=== PATIENT | female | born 1985 | race Caucasian/White ===

== ENCOUNTER 2017-10-13 16:16 | Emergency (ER) | payer MEDICAID, SELFPAY ==
[2017-10-13 16:21] VITALS: BP 164/107; PULSE 97; RESP 20; TEMP 36.8; O2SAT 97; BMI 29.2
[2017-10-13 16:27] VITALS: BP 164/107; PULSE 97; RESP 20; TEMP 36.9; O2SAT 97; BMI 29.2
--- NOTE | 2017-10-13 16:37 | CT_ITS ---
CT head/brain wo con HISTORY: Severe headache and dizziness ITS.REASON: HIGH BP, RIVERA, DIZZINESS ORDERING PHYSICIAN: Kari Ramírez MD PATIENT AGE: 32 years COMPARISON: None TECHNIQUE: Axial images obtained without contrast. Brain and bone windows reviewed. FINDINGS: No midline shift, mass effect, intracranial hemorrhage, hydrocephalus, or extra-axial fluid collection is evident. The calvarium has an unremarkable appearance. No mastoid effusion. No sinus air-fluid levels.. IMPRESSION: Negative CT head without contrast. No acute finding.
--- NOTE | 2017-10-13 16:37 | XR_ITS ---
XR chest 2V HISTORY: Hypertension ITS.REASON: HIGH BP, RIVERA, DIZZINESS ORDERING PHYSICIAN: Kari Ramírez MD PATIENT AGE: 32 years COMPARISON: 06/15/2017 FINDINGS: The cardiomediastinal silhouette and pulmonary vascularity are within normal limits. The lungs are clear without infiltrates, suspicious nodules, or pleural effusions. No acute bony abnormalities. IMPRESSION: Negative chest, no acute finding
[2017-10-13 16:47] VITALS: BP 151/105; PULSE 74; RESP 20; O2SAT 98
[2017-10-13 17:01] LABS: Microscopic, Urine URINE MICROSCOPIC (MICROSCOPIC)
[2017-10-13 17:04] LABS: Basophils # 0.1 K/mm3 (0-0.2); Basophils % 0.6 % (0.1-2.0); Eosinophils # 0.2 K/mm3 (0.0-0.4); Eosinophils % 1.5 % (0.1-12.0); Hematocrit 42.8 % (37.0-47.0); Hemoglobin 14.4 g/dL (12.2-16.2); Lymphocytes # 2.5 K/mm3 (0.7-4.5); Lymphocytes % 21.8 K/mm3 (10-50); Mean Corpuscular HGB Conc 33.7 g/dL (31.8-35.4); Mean Corpuscular Hemoglobin 32.7 pg (27.0-31.2); Mean Corpuscular Volume 97.1 fl (81-99); Monocytes # 0.5 K/mm3 (0.1-1.0); Monocytes % 4.2 % (1.7-9.3); Neutrophils # 8.4 K/mm3 (1.8-7.8); Neutrophils % 71.9 % (37.0-80.0); Platelet Count 394 K/mm3 (142-424); Red Blood Count 4.41 M/mm3 (4.20-5.40); Red Cell Distribution Width 12.4 % (11.5-17.5); White Blood Count 11.7 K/mm3 (4.8-10.8)
--- NOTE | 2017-10-13 17:05 | PC.NURSE ---
PT TO RAD AT THIS TIME
[2017-10-13 17:13] LABS: Appearance,Urine CLEAR (Clear); Bilirubin,Urine Negative (Negative); Blood, Urine Negative (Negative); Color,Urine YELLOW (Yellow); Glucose,Urine (UA) Negative (Negative); Ketones,Urine Negative (Negative); Leukocyte Esterase,Urine Negative (Negative); Nitrate,Urine Negative (Negative); Protein,Urine Negative (Negative); Specific Gravity, Urine 1.015 (1.005-1.030); Urobilinogen,Urine 0.2 EU/dl (0.2)
[2017-10-13 17:16] LABS: Urine Pregnancy, HCG Qual. Negative (Negative)
[2017-10-13 17:24] LABS: Amphetamine/Metha Screen,Urine Negative ng/mL (<1000); Barbiturates Screen,Urine Negative ng/mL (<200); Benzodiazepines Screen,Urine Negative ng/mL (200); Cannabinoid Screen,Urine Negative ng/mL (<50); Cocaine Screen,Urine Negative ng/g (<300); Methadone Screen,Urine Negative ng/mL (<300); Opiate Screen,Urine Negative ng/mL (<300); Phencyclidine Screen,Urine Negative ng/mL (<25)
[2017-10-13 17:25] LABS: Bacteria,Urine Trace /lpf; Squamous Epithelial Cell,Urine 20-50 #/hpf (0-5)
[2017-10-13 17:28] LABS: Alanine Aminotransferase 56 U/L (12-78); Albumin Level 4.2 gm/dL (3.4-5.0); Albumin/Globulin Ratio 1.2 (1.1-1.8); Alkaline Phosphatase 130 U/L (46-116); Aspartate Amino Transferase 34 U/L (15-37); Bilirubin,Total 0.6 mg/dL (0.2-1.0); Blood Urea Nitrogen 11 mg/dL (7-18); Calcium 8.5 mg/dL (8.5-10.1); Carbon Dioxide 25 mmol/L (21.0-32.0); Chloride 103 mmol/L (98-107); Creatine Kinase 64 U/L (26-192); Creatinine Clearance Estimated 179 mL/min (0-300); Creatinine,Serum 0.54 mg/dL (0.55-1.02); Estimated Glomerular Filt Rate 129 ml/min (>60); GFR (African American) 156 ML/MIN (>60); Globulin 3.6 gm/dl (1.3-3.2); Glucose 96 mg/dL (74-106); Sodium 139 mmol/L (136-145); Total Protein,Serum 7.8 gm/dL (6.4-8.2); Troponin I < 0.02 ng/ml (0.00-0.06)
[2017-10-13 17:29] LABS: CKMB Relative Index 0.8 U/L (0-4.0); Creatine Kinase MB < 0.5 mg/ml (0.0-3.6)
--- NOTE | 2017-10-13 17:44 | HMH.EDHA ---
ED Disposition Clinical Impression: Hypertensive urgency, Headache Disposition: Home, Self-Care Condition on Discharge: Good Instructions: DI for Headache Additional Instructions: See MD of choice in one to three days for recheck blood pressure and better blood pressure control. Prescriptions: Lisinopril/Hydrochlorothiazide [Lisinopril-Hctz 10-12.5 mg Tab] 1 tab PO DAILY #14 tab Referrals: Provider,Referral, MD [Primary Care Provider] - - Critical Care Critical Care Time: Yes Attestation: On 10/13/17, the high probability of a clinically significant, sudden or life threatening deterioration of the following system(s) required my full and direct attention, intervention and personal management. The time I documented below is in addition to time spent performing reported procedures but includes the following listed in this critical care notation. Vital system(s) involved:: Central Nervous System My critical care processes included: Assessment & monitoring of V/S, Initial and Re-exams, Data Review/Interpretation, Medication Orders and management, Documentation Medical Decision Making - Medical Records Medical records reviewed: Yes: I reviewed the patient's medical records. Vital Signs: 10/13/17 16:21 10/13/17 16:27 10/13/17 16:47 Temperature 98.2 F 98.4 F Temperature Source Oral Oral Pulse Rate [Right Brachial] 97 H 97 H 74 Respiratory Rate 20 20 20 Blood Pressure [Right Arm] 164/107 164/107 151/105 Blood Pressure Mean [Right Arm] 126 126 120 Blood Pressure Source [Right Arm] Automatic Cuff Automatic Cuff Automatic Cuff Blood Pressure Position [Right Arm] Sitting Sitting Supine 02 Sat by Pulse Oximetry 97 97 98 Oxygen Delivery Method Room Air Room Air Room Air 10/13/17 18:17 Temperature Temperature Source Pulse Rate [Right Brachial] 72 Respiratory Rate 20 Blood Pressure [Right Arm] 143/100 Blood Pressure Mean [Right Arm] 114 Blood Pressure Source [Right Arm] Automatic Cuff Blood Pressure Position [Right Arm] Sitting 02 Sat by Pulse Oximetry 99 Oxygen Delivery Method Room Air - Lab Data Lab results reviewed: Yes: I reviewed the patient's lab results. Lab Results 10/13/17 16:50: WBC 11.7 H, RBC 4.41, Hgb 14.4, Hct 42.8, MCV 97.1, MCH 32.7 H, MCHC 33.7, RDW 12.4, Plt Count 394, MPV 7.0 L, Neut % (Auto) 71.9, Lymph % (Auto) 21.8, [place] % (Auto) 4.2, Eos % (Auto) 1.5, Baso % (Auto) 0.6, Neut # (Auto) 8.4 H, Lymph # (Auto) 2.5, [place] # (Auto) 0.5, Eos # (Auto) 0.2, Baso # (Auto) 0.1 10/13/17 16:50: Sodium 139, Potassium 4.0, Chloride 103, Carbon Dioxide 25, Anion Gap 15.0, BUN 11, Creatinine 0.54 L, Estimated Creat Clear 179, Estimated GFR 129, Est GFR ( Amer) 156, Glucose 96, Calcium 8.5, Total Bilirubin 0.6, AST 34, ALT 56, Alkaline Phosphatase 130 H, Total Creatine Kinase 64, CK-MB (CK-2) < 0.5, CK-MB (CK-2) Rel Index 0.8, Troponin I < 0.02, Total Protein 7.8, Albumin 4.2, Globulin 3.6 H, Albumin/Globulin Ratio 1.2 10/13/17 16:50: Urine HCG, Qual Negative 10/13/17 16:50: Urine Opiates Screen Negative, Ur Barbituates Screen Negative, Ur Phencyclidine Scrn Negative, Ur Amphetamines Screen Negative, U Methamphetamines Scrn Negative, U Benzodiazepines Scrn Negative, Urine Cocaine Screen Negative, U Marijuana (THC) Screen Negative 10/13/17 16:56: Urine Color Yellow, Urine Appearance Clear, Urine pH 8.0, Ur Specific [place] 1.015, Urine Protein Negative, Urine Glucose (UA) Negative, Urine Ketones Negative, Urine Blood Negative, Urine Nitrate Negative, Urine Bilirubin Negative, Urine Urobilinogen 0.2, Ur Leukocyte Esterase Negative, Urine RBC None, Urine WBC None, Ur Squamous Epith Cells 20-50, Urine Bacteria Trace Result diagrams: 10/13/17 16:50 10/13/17 16:50 Orders (Tests/Meds): ED MEDICATIONS Discontinued Medications Generic Name Dose Route Start Last Admin Trade Name Freq PRN Reason Stop Dose Admin Clonidine HCl 0.1 mg 10/13/17 17:59 10/13/17 18:02 Clonidine 0.1mg Tablet PO
--- NOTE | 2017-10-13 17:48 | ED_ITS ---
ED Disposition Clinical Impression: Hypertensive urgency, Headache Disposition: Home, Self-Care Condition on Discharge: Good Instructions: DI for Headache Additional Instructions: See MD of choice in one to three days for recheck blood pressure and better blood pressure control. Prescriptions: Lisinopril/Hydrochlorothiazide [Lisinopril-Hctz 10-12.5 mg Tab] 1 tab PO DAILY # 14 tab Referrals: Provider,Referral, MD [Primary Care Provider] - - Critical Care Critical Care Time: Yes Attestation: On 10/13/17, the high probability of a clinically significant, sudden or life threatening deterioration of the following system(s) required my full and direct attention, intervention and personal management. The time I documented below is in addition to time spent performing reported procedures but includes the following listed in this critical care notation. Vital system(s) involved:: Central Nervous System My critical care processes included: Assessment & monitoring of V/S, Initial and Re-exams, Data Review/Interpretation, Medication Orders and management, Documentation Medical Decision Making - Medical Records Medical records reviewed: Yes: I reviewed the patient's medical records. Vital Signs: 10/13/17 16:21 10/13/17 16:27 10/13/17 16:47 Temperature 98.2 F 98.4 F Temperature Source Oral Oral Pulse Rate [Right Brachial] 97 H 97 H 74 Respiratory Rate 20 20 20 Blood Pressure [Right Arm] 164/107 164/107 151/105 Blood Pressure Mean [Right Arm] 126 126 120 Blood Pressure Source [Right Arm] Automatic Cuff Automatic Cuff Automatic Cuff Blood Pressure Position [Right Arm] Sitting Sitting Supine 02 Sat by Pulse Oximetry 97 97 98 Oxygen Delivery Method Room Air Room Air Room Air 10/13/17 18:17 Temperature Temperature Source Pulse Rate [Right Brachial] 72 Respiratory Rate 20 Blood Pressure [Right Arm] 143/100 Blood Pressure Mean [Right Arm] 114 Blood Pressure Source [Right Arm] Automatic Cuff Blood Pressure Position [Right Arm] Sitting 02 Sat by Pulse Oximetry 99 Oxygen Delivery Method Room Air - Lab Data Lab results reviewed: Yes: I reviewed the patient's lab results. Lab Results 10/13/17 16:50: WBC 11.7 H, RBC 4.41, Hgb 14.4, Hct 42.8, MCV 97.1, MCH 32.7 H, MCHC 33.7, RDW 12.4, Plt Count 394, MPV 7.0 L, Neut % (Auto) 71.9, Lymph % (Auto ) 21.8, [place] % (Auto) 4.2, Eos % (Auto) 1.5, Baso % (Auto) 0.6, Neut # (Auto) 8.4 H, Lymph # (Auto) 2.5, [place] # (Auto) 0.5, Eos # (Auto) 0.2, Baso # (Auto) 0.1 10/13/17 16:50: Sodium 139, Potassium 4.0, Chloride 103, Carbon Dioxide 25, Anion Gap 15.0, BUN 11, Creatinine 0.54 L, Estimated Creat Clear 179, Estimated GFR 129, Est GFR ( Amer) 156, Glucose 96, Calcium 8.5, Total Bilirubin 0.6, AST 34, ALT 56, Alkaline Phosphatase 130 H, Total Creatine Kinase 64, CK- MB (CK-2) < 0.5, CK-MB (CK-2) Rel Index 0.8, Troponin I < 0.02, Total Protein 7.8, Albumin 4.2, Globulin 3.6 H, Albumin/Globulin Ratio 1.2 10/13/17 16:50: Urine HCG, Qual Negative 10/13/17 16:50: Urine Opiates Screen Negative, Ur Barbituates Screen Negative, Ur Phencyclidine Scrn Negative, Ur Amphetamines Screen Negative, U Methamphetamines Scrn Negative, U Benzodiazepines Scrn Negative, Urine Cocaine Screen Negative, U Marijuana (THC) Screen Negative 10/13/17 16:56: Urine Color Yellow, Urine Appearance Clear, Urine pH 8.0, Ur Specific [place] 1.015, Urine Protein Negative, Urine Glucose (UA) Negative, Urine [place]
[2017-10-13 18:17] VITALS: BP 143/100; PULSE 72; RESP 20; O2SAT 99
[2017-10-13 19:07] VITALS: BP 130/92; PULSE 88; RESP 22; TEMP 37.1; O2SAT 98
== END 2017-10-13 19:10 | disposition home or self-care (01) ==
PROVIDERS: Emergency Provider Emergency Medicine; Family Provider Family Medicine
DX: I16.0 Hypertensive urgency (principal); R51 Headache
CPT/HCPCS: 70450; 71046; 80053; 80305; 81001; 81025; 82550; 82553; 84484; 85025; 93005; 93041; 99284

== ENCOUNTER 2019-04-23 11:25 | Outpatient (CLI) | payer MEDICAID, SELFPAY ==
--- NOTE | 2019-04-23 11:41 | PC.NURSE ---
HERE FOR PHYSICAL FOR WORK
== END 2019-04-23 11:42 | disposition home or self-care (01) ==
LOC: UTC.OUT 11:27
PROVIDERS: Visit Provider Nurse Practitioner Family
DX: Z02.1 Encounter for pre-employment examination (principal)

== ENCOUNTER 2023-02-05 18:36 | Emergency (ER) | payer MEDICAID, SELFPAY ==
[2023-02-05 18:36] VITALS: BP 146/80; PULSE 91; RESP 19; TEMP 37; O2SAT 97; BMI 27.4
[2023-02-05 18:48] VITALS: PULSE 87; O2SAT 98
[2023-02-05 19:00] VITALS: BP 129/73; PULSE 78; O2SAT 98
--- NOTE | 2023-02-05 19:02 | CT_ITS ---
PROCEDURE INFORMATION: Exam: CT Head With Contrast Exam date and time: 02/05/2023 7:20 PM Age: 37 years old Clinical indication: Pain; Other: Concern for abscess; Additional info: Concern for abscess/mastoiditis TECHNIQUE: Imaging protocol: Computed tomography of the head with intravenous contrast. Radiation optimization: All CT scans at this facility use at least one of these dose optimization techniques: automated exposure control; mA and/or kV adjustment per patient size (includes targeted exams where dose is matched to clinical indication); or iterative reconstruction. Contrast material: ISOVUE; Contrast volume: 100 ml; Contrast route: IV; REPORTING DATA: Count of CT and Cardiac NM exams in prior 12 months: This patient has received 0 known CTs and 0 known cardiac nuclear medicine studies in the 12 months prior to the current study. COMPARISON: HEADWO CT head/brain wo con 10/13/2017 5:06 PM FINDINGS: Brain: Unremarkable white matter. No mass effect. No abnormal enhancing lesions. Cerebral ventricles: Unremarkable. No ventriculomegaly. Bones/joints: Unremarkable. No acute fracture. Paranasal sinuses: Visualized sinuses are unremarkable. No fluid levels. Mastoid air cells: Visualized mastoid air cells are well aerated. Soft tissues: Unremarkable. IMPRESSION: No acute intracranial abnormality.
--- NOTE | 2023-02-05 19:03 | HMH.EDGENADL ---
Discharge Plan Disposition Patient Disposition: Home, Self-Care Prescriptions Prescriptions: New amoxicillin-pot clavulanate 875-125 mg tablet 1 tab PO BID Qty: 14 0RF No Action lisinopril-hydrochlorothiazide 1 EACH tablet 1 tab PO DAILY Qty: 14 0RF citalopram 10 MG tablet 10 mg PO DAILY buspirone 10 MG tablet 10 mg PO DAILY Referrals Follow up/Referrals: Matt Coronado MD [Primary Care Provider] - See instructions Clinical Impressions Clinical Impression: Acute pulpitis Instructions Patient Instructions: Tooth Abscess Discharge ED Provider: Cuba Guerin General Adult HPI General Chief complaint: Headache Stated complaint: RIVERA BP 177/133 Time Seen by Provider: 02/05/23 19:03 Mode of Arrival: Wheelchair Source of Information: Relative Limitations: No Limitations Description of Symptoms (Recalled from ER Triage Doc. by RN): 37 F presents with a headache, high blood pressure, body aches, and potential dental abscess. Patient has been trying to get into her dentist over the last couple of months without success. History of Present Illness HPI narrative: Patient is a 37-year-old female with no pertinent past medical history who presents with concern for headache, high blood pressure, body aches, concern for dental abscess. She says that she has been trying to get into her dentist for the last couple of months. She complains of pain in her right upper molars. She says it is gotten substantially worse over the last couple days and she started to get fever, chills, malaise. Today they noted that her blood pressure was elevated so they wanted to come in for evaluation. She was concerned that she had infection in her blood. She says she has not been eating and drinking very well partly due to the pain. Denies any abdominal pain. Denies any dysuria. Related Data Home Medications Medication Instructions Recorded Confirmed buspirone 10 mg tablet 10 mg PO DAILY Anxiety 04/22/18 04/22/18 citalopram 10 mg tablet 10 mg PO DAILY Depression 04/22/18 04/22/18 Previous Rx's Medication Instructions Recorded lisinopril 10 1 tab PO DAILY Hypertension #14 10/13/17 mg-hydrochlorothiazide 12.5 mg tabs tablet amoxicillin 875 mg-potassium 1 tab PO BID #14 tabs 02/05/23 clavulanate 125 mg tablet Allergies Allergy/AdvReac Type Severity Reaction Status Date / Time diphenhydramine Allergy Unknown Verified 04/22/18 20:01 [From BENADRYL] [facility] Disclaimer: The information contained in this section may have been updated after the patient was seen, as this information can be updated by other users. Social History Smoking Status: Former smoker alcohol intake: never substance use type: marijuana current occupational status: employed Travel in the last 8 weeks: None ROS Obtained: Yes All systems reviewed & no additional complaints except as documented Physical Exam General General appearance: alert and in no apparent distress Head Head exam: atraumatic, normocephalic and normal inspection Eye Eye exam: Present normal appearance and PERRL ENT ENT exam: Present normal exam, mucous membranes moist, normal external ear exam and other (Bilateral mastoid tenderness) Expanded ENT Exam Teeth exam: Present dental caries and fractured tooth # Neck Neck exam: Present normal inspection and trachea midline Chest Chest inspection: Present normal inspection and symmetric chest wall rise Respiratory Respiratory exam: Present normal lung sounds bilaterally; Absent respiratory distress Cardiovascular Cardiovascular exam: Present regular rate and normal rhythm Abdominal Exam Abdominal exam: Present soft; Absent distention, tenderness or guarding Extremities Exam Extremities exam: Present normal inspection; Absent edema Neurological Exam Neurological exam: Present alert and oriented X3 Psychiatric Psychiatric exam: Present normal affect and normal mood Skin Skin exam:
[2023-02-05 19:24] LABS: Basophils # 0.1 K/mm3 (0-0.2); Basophils % 0.5 % (0.1-2.0); Eosinophils # 0.2 K/mm3 (0.0-0.4); Eosinophils % 1.6 % (0.1-12.0); Hematocrit 38.8 % (37.0-47.0); Hemoglobin 13.1 g/dL (12.2-16.2); Lymphocytes % 38.8 % (10-50); Mean Corpuscular HGB Conc 33.7 g/dL (31.8-35.4); Mean Corpuscular Hemoglobin 32.2 pg (27.0-31.2); Mean Corpuscular Volume 95.6 fl (81-99); Mean Platelet Volume 7.3 fl (7.4-10.4); Monocytes # 0.5 K/mm3 (0.1-1.0); Monocytes % 4.7 % (1.7-9.3); Neutrophils # 5.7 K/mm3 (1.8-7.8); Neutrophils % 54.5 % (37.0-80.0); Platelet Count 332 K/mm3 (142-424); Red Blood Count 4.06 M/mm3 (4.20-5.40); Red Cell Distribution Width 12.5 % (11.5-17.5); White Blood Count 10.4 K/mm3 (4.8-10.8)
--- NOTE | 2023-02-05 19:24 | PC.NURSE ---
Pt back from RAD
[2023-02-05 19:31] VITALS: BP 123/58; PULSE 76; O2SAT 98
[2023-02-05 19:38] LABS: Chloride 100 mmol/L (98-107); Potassium 3.5 mmoL/L (3.5-5.1); Sodium 137 mmol/L (136-145)
[2023-02-05 19:40] LABS: Alanine Aminotransferase 18 U/L (12-78); Aspartate Amino Transferase 27 U/L (14-36); Blood Urea Nitrogen 14 mg/dl (7-17); Creatinine Clearance Estimated 153 mL/min (50-200); Estimated Glomerular Filt Rate 111 ml/min (>60); GFR (African American) 135 ML/MIN (>60)
[2023-02-05 19:41] LABS: Albumin/Globulin Ratio 1.5 (1.1-1.8); Alkaline Phosphatase 59 U/L (38-126); Anion Gap 13.5 mEq/L (5-15); Bilirubin,Total 0.7 mg/dl (0.2-1.3); Calcium 8.3 mg/dl (8.4-10.2); Carbon Dioxide 27 mmol/L (22.0-30.0); Globulin 2.7 g/dL (1.3-3.2); Glucose 88 mg/dl (74-100); Total Protein,Serum 6.7 g/dl (6.3-8.2)
[2023-02-05 19:46] LABS: C-Reactive Protein 2.2 mg/L (0-4)
--- NOTE | 2023-02-05 19:55 | PC.NURSE ---
PT assisted to walk to bathroom. Pt was very dizzy at this time. Urine sample obtained
[2023-02-05 20:01] VITALS: BP 121/72; PULSE 84; O2SAT 98
[2023-02-05 20:04] LABS: Microscopic, Urine URINE MICROSCOPIC (MICROSCOPIC)
[2023-02-05 20:08] LABS: Appearance,Urine CLEAR (Clear); Bilirubin,Urine Negative (Negative); Blood, Urine 3+ (Negative); Color,Urine YELLOW (Yellow); Glucose,Urine (UA) Negative (Negative); Ketones,Urine Negative (Negative); Leukocyte Esterase,Urine Negative (Negative); Nitrate,Urine Negative (Negative); PH,Urine 6.5 (5.0-8.5); Protein,Urine Negative (Negative); Urobilinogen,Urine 0.2 EU/dl (0.2)
--- NOTE | 2023-02-05 20:11 | PC.NURSE ---
Dr. Guerin at BS
[2023-02-05 20:19] VITALS: BP 119/73; PULSE 75; RESP 16; TEMP 37; O2SAT 98
[2023-02-05 20:35] LABS: Bacteria,Urine Trace /lpf; Squamous Epithelial Cell,Urine Occasional #/hpf (0-5)
== END 2023-02-05 20:34 | disposition home or self-care (01) ==
PROVIDERS: Emergency Provider Student in an Organized Health Care Education/Training Program; PCP Internal Medicine Adolescent Medicine
DX: R51.9 Headache, unspecified (principal); I10 Essential (primary) hypertension; K04.01 Reversible pulpitis; Z87.891 Personal history of nicotine dependence
CPT/HCPCS: 70460; 80053; 81001; 85025; 86140; 96361; 96374; 96375; 99284; 99285; J2405; Q9967

== ENCOUNTER → 2023-05-25 08:59 | Outpatient (CLI) | payer MEDICAID, SELFPAY ==
--- NOTE | 2023-05-25 09:00 | US_ITS ---
FINAL REPORT CLINICAL HISTORY: lt breast mass - dr deras - 3:00 core bx FINDINGS: ULTRASOUND-GUIDED LEFT BREAST CORE BIOPSY TECHNIQUE: Limited images were obtained to localize region of interest. The left breast was prepped in a routine sterile fashion and locally anesthetized with 1% lidocaine. Standard written informed consent was obtained. Initial sonographic assessment showed 3 adjacent irregular, ill-defined hypoechoic areas with shadowing in the left breast at 3:00. The largest was targeted for biopsy under the assumption that all 3 lesions would be of similar histopathology. The biopsy needle was positioned within the outer periphery of the lesion. A total of 4 passes were made with a 16 gauge core biopsy needle. A biopsy marker clip was deployed in satisfactory position. Postbiopsy mammogram showed postbiopsy changes with clip in satisfactory position. Procedure was well tolerated . CONCLUSION: 1. Technically successful ultrasound guided core biopsy of left breast lesion as above. 2. 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 Surgical consultation is recommended. It should be noted at the time of biopsy 3 similar lesions were seen at the 3 o'clock position with the most suspicious/largest targeted for biopsy. However the pattern is compatible with a multifocal breast cancer with other non-biopsied lesions likely of similar histopathology. Authenticated and ERN
--- NOTE | 2023-05-25 10:34 | MM_ITS ---
FINAL REPORT CLINICAL HISTORY: .clip placement, left breast biopsy FINDINGS: MAMMOGRAM LEFT TECHNIQUE: Standard digital 2-D views COMPARISON: Outside mammogram done within the past month DENSITY: There are scattered areas of fibroglandular density FINDINGS: Post biopsy marker clip is noted to be in satisfactory position. Postbiopsy changes are noted in the lateral left breast. IMPRESSION: Biopsy marker clip in good position RECOMMENDATION: Histopathology reveals findings of invasive ductal carcinoma. Surgical consultation is recommended. It should be noted at the time of biopsy 3 similar lesions were seen at the 3 o'clock position with the most suspicious/largest targeted for biopsy. However the pattern is compatible with a multifocal breast cancer with other non-biopsied lesions likely of similar histopathology. Authenticated and ERN
== END ==
PROVIDERS: PCP Internal Medicine Adolescent Medicine; Visit Provider Surgery
DX: N63.21 Unspecified lump in the left breast, upper outer quadrant (principal)
CPT/HCPCS: 19083; 77065

== ENCOUNTER 2023-09-06 11:17 | Emergency (ER) | payer MEDICAID, SELFPAY ==
[2023-09-06 12:10] VITALS: BP 139/81; PULSE 89; RESP 21; TEMP 36.9; O2SAT 100; BMI 27.8
[2023-09-06 12:35] LABS: UTC Influenza A Antigen Negative (Negative); UTC Influenza B Antigen Negative (Negative); UTC Strep Screen (Rapid) Negative (Negative)
--- NOTE | 2023-09-06 12:45 | EXP.UTC ---
Discharge Plan Disposition Patient Disposition: Home, Self-Care Condition: Good Prescriptions Prescriptions: No Action fluoxetine 10 mg capsule 10 mg PO DAILY Patient Comments: TAKE 1 CAPSULE BY MOUTH EVERY DAY trazodone 150 mg tablet 150 mg PO DAILY propranolol 10 mg tablet 10 mg PO DAILY venlafaxine 37.5 mg capsule,extended release 24hr 37.5 mg PO DAILY omeprazole 40 mg capsule,delayed release(DR/EC) 40 mg PO DAILY dexamethasone 4 mg tablet 4 mg PO DAILY loratadine 10 mg tablet 10 mg PO DAILY duloxetine 30 mg capsule,delayed release(DR/EC) 30 mg PO DAILY Referrals Follow up/Referrals: Nova Ferrer APRN [Primary Care Provider] - See instructions Activity Restrictions/Add. Instructions Additional Instructions/Restrictions: Start antibiotic today. Be sure to complete entire prescription even if feeling better Tylenol and ibuprofen as needed for pain or fever Humidifier/vaporizer/hot steamy shower Follow-up with primary care tomorrow. Follow-up immediately in the ER of the [facility] for new or worsening symptoms or no noticeable improvement over the next 48-72 hours. call back with what antibiotics its safe to take with cancer treatment Clinical Impressions Clinical Impression: Bronchitis Instructions Patient Instructions: DI for Acute Bronchitis Discharge ED Provider: Joni ([facility])Jason [facility] – [place], [place] HPI General Stated complaint: body aches,weak,congested,sore throat Mode of Arrival: Ambulatory Source of Information: Patient Limitations: No Limitations Time Seen by Provider: 09/06/23 12:45 Description of Symptoms (Recalled from Triage Doc. by RN): body aches, sore throat, green/yellow drainage and RIVERA HEENT Symptoms (Recalled from RN notes): Yes Resp Symptoms (Recalled from RN notes): No Skin Symptoms (Recalled from RN notes): No MS Symptoms (Recalled from RN notes): No Functional Status (Recalled from RN notes): n/a History of Present Illness Provider Complaint: 38 yr old female presents for body aches, sore throat, and RIVERA, just finished chemo round Related Data Home Medications Medication Instructions Recorded Confirmed fluoxetine 10 mg capsule 10 mg PO DAILY 05/24/23 09/06/23 propranolol 10 mg tablet 10 mg PO DAILY 05/24/23 09/06/23 trazodone 150 mg tablet 150 mg PO DAILY 05/24/23 09/06/23 dexamethasone 4 mg tablet 4 mg PO DAILY 09/06/23 09/06/23 duloxetine 30 mg capsule,delayed 30 mg PO DAILY 09/06/23 09/06/23 release loratadine 10 mg tablet 10 mg PO DAILY 09/06/23 09/06/23 omeprazole 40 mg capsule,delayed 40 mg PO DAILY 09/06/23 09/06/23 release venlafaxine 37.5 mg 37.5 mg PO DAILY 09/06/23 09/06/23 capsule,extended release 24 hr Allergies Allergy/AdvReac Type Severity Reaction Status Date / Time diphenhydramine Allergy Unknown Verified 09/06/23 12:28 [From BENADRYL] Worker's Comp Is this a Worker's Comp case?: No [facility] Disclaimer: The information contained in this section may have been updated after the patient was seen, as this information can be updated by other users. 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 (Reviewed 09/06/23 @ 12:46 by Jason Quinones ([facility]), [employer]) History of breast biopsy Social History (Reviewed 09/06/23 @ 12:46 by Jason Quinones ([facility]), [employer]) Smoking Status: Former smoker alcohol intake: never substance use type: marijuana current occupational status: employed Travel in the last 8 weeks: None ROS Obtained: Yes All systems reviewed & no additional complaints except as documented Constitutional Constitutional: Reports system reviewed and no additional complaints, except as documented, Reports as per HPI, Reports body ache and Reports chills Eyes Eyes: Reports system reviewed and no additional complaints, except as documented ENT Ears, Nose, Mouth, and Throat: Reports system reviewed and no additional complaints, except as documented, Reports as per HPI and Reports sore throat Cardiovascula
[2023-09-06 12:57] VITALS: BP 139/81; PULSE 89; RESP 18; TEMP 36.9; O2SAT 100
== END 2023-09-06 12:57 | disposition home or self-care (01) ==
PROVIDERS: Emergency Provider Nurse Practitioner Family; PCP Nurse Practitioner Family
DX: J20.9 Acute bronchitis, unspecified (principal); R51.9 Headache, unspecified; R07.0 Pain in throat; R09.81 Nasal congestion; R53.1 Weakness; M79.18 Myalgia, other site; R68.83 Chills (without fever); Z92.21 Personal history of antineoplastic chemotherapy; Z85.3 Personal history of malignant neoplasm of breast
CPT/HCPCS: 87804; 87880; 99204; 99212; G0463

== ENCOUNTER 2024-04-03 21:11 | Emergency (ER) | payer MEDICAID, SELFPAY ==
[2024-04-03 21:12] VITALS: BP 180/118; PULSE 118; RESP 18; TEMP 36.8; O2SAT 96; BMI 27.8
--- NOTE | 2024-04-03 21:19 | HMH.EDGENADL ---
Discharge Plan Disposition Patient Disposition: Home, Self-Care Chief Complaint: PAIN Prescriptions Prescriptions: No Action fluoxetine 10 mg capsule 10 mg PO DAILY Patient Comments: TAKE 1 CAPSULE BY MOUTH EVERY DAY trazodone 150 mg tablet 150 mg PO DAILY propranolol 10 mg tablet 10 mg PO DAILY venlafaxine 37.5 mg capsule,extended release 24hr 37.5 mg PO DAILY omeprazole 40 mg capsule,delayed release(DR/EC) 40 mg PO DAILY dexamethasone 4 mg tablet 4 mg PO DAILY loratadine 10 mg tablet 10 mg PO DAILY duloxetine 30 mg capsule,delayed release(DR/EC) 30 mg PO DAILY Referrals Follow up/Referrals: Nova Ferrer APRN [Primary Care Provider] - See instructions Activity Restrictions/Add. Instructions Additional Instructions/Restrictions: Call your family doctor to establish care for this visit to the emergency department and schedule follow-up within 48 hours to ensure improvement. If you have any worsening of your condition or any other concerning signs or symptoms, return to the emergency department or your primary care doctor for further evaluation. Clinical Impressions Clinical Impression: Arm pain, right, Chest pain Discharge ED Provider: Neeraj Quan General Adult HPI <LUCI Silva - Last Filed: 04/03/24 23:05> General Chief complaint: PAIN Stated complaint: RIVERA, dizzy, numbness in fingers Time Seen by Provider: 04/03/24 21:17 Related Data Home Medications Medication Instructions Recorded Confirmed fluoxetine 10 mg capsule 10 mg PO DAILY 05/24/23 09/06/23 propranolol 10 mg tablet 10 mg PO DAILY 05/24/23 09/06/23 trazodone 150 mg tablet 150 mg PO DAILY 05/24/23 09/06/23 dexamethasone 4 mg tablet 4 mg PO DAILY 09/06/23 09/06/23 duloxetine 30 mg capsule,delayed 30 mg PO DAILY 09/06/23 09/06/23 release loratadine 10 mg tablet 10 mg PO DAILY 09/06/23 09/06/23 omeprazole 40 mg capsule,delayed 40 mg PO DAILY 09/06/23 09/06/23 release venlafaxine 37.5 mg 37.5 mg PO DAILY 09/06/23 09/06/23 capsule,extended release 24 hr Allergies Allergy/AdvReac Type Severity Reaction Status Date / Time diphenhydramine Allergy Unknown Verified 09/06/23 12:28 [From [id number]] [facility] <LUCI Silva - Last Filed: 04/03/24 23:05> [facility] Disclaimer: The information contained in this section may have been updated after the patient was seen, as this information can be updated by other users. 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 SETTER) Smoking Status: Never smoker alcohol intake: never substance use type: marijuana current occupational status: employed Travel in the last 8 weeks: None <LUCI Silva - Last Filed: 04/03/24 23:05> ROS Obtained: Yes Systems reviewed as appropriate & no additional complaints except as documented Physical Exam <LUCI Silva - Last Filed: 04/03/24 23:05> General General appearance: alert and in no apparent distress Head Head exam: atraumatic and normal inspection Eye Eye exam: Present normal appearance, PERRL and EOMI ENT ENT exam: Present normal exam, normal oropharynx and mucous membranes moist Neck Neck exam: Present normal inspection, full ROM and trachea midline; Absent lymphadenopathy Chest Chest inspection: Present normal inspection and symmetric chest wall rise Respiratory Respiratory exam: Present normal lung sounds bilaterally; Absent accessory muscle use Cardiovascular Cardiovascular exam: Present regular rate, normal rhythm, normal heart sounds, +S1 and +S2 Abdominal Exam Abdominal exam: Present soft and normal bowel sounds; Absent tenderness, guarding or rebound Extremities Exam Extremities exam: Present normal inspection and full ROM Neurological Exam Neurological exam: Present alert, oriented X3 and CN II-XII intact Psychiatric Psychiatric exam: Present normal affect and normal mood Skin Skin exam: Present warm, dry and normal color Lymphatic Lymphatic Findings: no adenopathy Medical Decision Making <LUCI Silva - Last Filed: 04/03/24 23:05> Fl[place]io Inquiry Pt receiving controlled substance: No Vital Signs: 04/03/24 21:12 04/03/24 21:37 Temperature 98.2 F Temperature Source Oral Pulse Rate 91 H Pulse Rate [Left] 118 H Respiratory Rate 18 16 Blood Pressure 151/76 H Blood Pressure [Right Calf] 180/118 H Blood Pressure Mean [Right Calf] 138 Blood Pressure Source [Right Calf] Automatic Cuff Blood Pressure Position [Right Calf] Supine 02 Sat by Pulse Oximetry 96 94 L Oxygen Delivery Method Room Air Room Air Lab Data Lab Results 04/03/24 21:42: WBC 9.5, RBC 4.62, Hgb 13.8, Hct 40.7, MCV 87.9, MCH 29.8, MCHC 33.9, RDW 15.4, Plt Count 300, MPV 7.8, Neut % (Auto) 59.9, Lymph % (Auto) 30.9, [place] % (Auto) 5.6, Eos % (Auto) 2.9, Baso % (Auto) 0.7, Neut # (Auto) 5.7, Lymph # (Auto) 2.9, [place] # (Auto) 0.5, Eos # (Auto) 0.3, Baso # (Auto) 0.1, D-Dimer 0.33, Sodium 140, Potassium 3.4 L, Chloride 106, Carbon Dioxide 28, Anion Gap 9.4, BUN 9, Creatinine 0.50 L, Estimated Creat Clear 179, Estimated GFR 137, Est GFR ( Amer) 165, Glucose 79, Calcium 9.3, Magnesium 1.7, Total Bilirubin 0.6, AST 27, ALT 20, Alkaline Phosphatase 83, Troponin I < 0.01, Total Protein 7.3, Albumin 4.2, Globulin 3.1, Albumin/Globulin Ratio 1.4 04/03/24 21:42 04/03/24 21:42 Orders (Tests/Meds): ED MEDICATIONS Discontinued Medications Generic Name Dose Route Start Last Admin Trade Name Chase PRN Reason Stop Dose Admin Acetaminophen 1,000 mg 04/03/24 21:34 04/03/24 21:46 Acetaminophen 1,000mg/100ml Vial IV 04/03/24 21:35 1,000 mg ONCE ONE Administration Lactated Ringer's 1,000 mls @ 999 mls/hr 04/03/24 21:34 04/03/24 21:47 Lactated Ringer's 1000 Ml Bag IV 04/03/24 22:34 999 mls/hr .Q1H1M ONE Administration Ketorolac Tromethamine 15 mg 04/03/24 21:34 04/03/24 21:46 Ketorolac 30mg/Ml Vial IV 07/10/24 21:35 15 mg ONCE ONE Administration Prochlorperazine Edisylate 10 mg 04/03/24 21:34 04/03/24 21:47 Prochlorperazine 10mg/2ml Vial IV 04/03/24 21:35 10 mg ONCE ONE Administration ORDERS Category Date Time Status POCUS Point of Care (ER Only) Stat Exams 04/03/24 21:34 Taken Complete Blood Count Auto Diff Stat Lab 04/03/24 21:42 Completed Comprehensive Metabolic Panel Stat Lab 04/03/24 21:42 Completed D-Dimer Stat Lab 04/03/24 21:42 Completed Magnesium Stat Lab 04/03/24 21:42 Completed Troponin I Q3H Lab 04/04/24 00:45 Ordered Troponin I Q3H Lab 04/04/24 03:45 Ordered Troponin I Stat Lab 04/03/24 21:42 Completed Medical Decision Narrative: In summary patient is a [age, sex] who presents to the emergency department for evaluation of [complaint]. Patient is [hemodynamically stable/unstable] upon arrival, [febrile/afebrile]. [Unremarkable physical exam, nonfocal exam versus focal remarkable exam]. Differential diagnosis includes [DDx]. Initial workup will be conducted with [hematologic labs, imaging, respiratory swab, describe workup]. Initial interventions include [crystalloid bolus, medications, p.o. challenge, etc.] initial workup reviewed by me [hematologic labs are remarkable for... Imaging remarkable for... Urinalysis remarkable for]. Upon repeat evaluation [patient had acceptable resolution of symptoms, had persistent pain for which additional interventions were conducted (describe interventions), tolerated p.o., was ambulatory, etc.]. Given this [patient is appropriate for discharge at this time and will be discharged with a prescription for... The case was discussed with hospital medicine regarding management and they will admit the patient their service for continued evaluation at this time... Etc.] Places where you can increase complexity: I informally interpreted the patient's chest x-ray or CT read and is remarkable for... Documenting what the shelter monitor shows with rate and rhythm Consideration of test but deferring. Ex: I considered chest x-ray on this patient however given that they have no oxygen requirement and are clear to auscultation all lung fisher will be deferred. Social determinants of health: Given that patient is undomiciled increases complexity. Given that patient has polysubstance abuse compounds all aspects of care <Neeraj Quan MD - Last Filed: 04/03/24 23:17> Vital Signs: 04/03/24 21:12 04/03/24 21:37 Temperature 98.2 F Temperature Source Oral Pulse Rate 91 H Pulse Rate [Left] 118 H Respiratory Rate 18 16 Blood Pressure 151/76 H Blood Pressure [Right Calf] 180/118 H Blood Pressure Mean [Right Calf] 138 Blood Pressure Source [Right Calf] Automatic Cuff Blood Pressure Position [Right Calf] Supine 02 Sat by Pulse Oximetry 96 94 L Oxygen Delivery Method Room Air Room Air Lab Data Lab Results 04/03/24 21:42: WBC 9.5, RBC 4.62, Hgb 13.8, Hct 40.7, MCV 87.9, MCH 29.8, MCHC 33.9, RDW 15.4, Plt Count 300, MPV 7.8, Neut % (Auto) 59.9, Lymph % (Auto) 30.9, [place] % (Auto) 5.6, Eos % (Auto) 2.9, Baso % (Auto) 0.7, Neut # (Auto) 5.7, Lymph # (Auto) 2.9, [place] # (Auto) 0.5, Eos # (Auto) 0.3, Baso # (Auto) 0.1, D-Dimer 0.33, Sodium 140, Potassium 3.4 L, Chloride 106, Carbon Dioxide 28, Anion Gap 9.4, BUN 9, Creatinine 0.50 L, Estimated Creat Clear 179, Estimated GFR 137, Est GFR ( Amer) 165, Glucose 79, Calcium 9.3, Magnesium 1.7, Total Bilirubin 0.6, AST 27, ALT 20, Alkaline Phosphatase 83, Troponin I < 0.01, Total Protein 7.3, Albumin 4.2, Globulin 3.1, Albumin/Globulin Ratio 1.4 Orders (Tests/Meds): ED MEDICATIONS Discontinued Medications Generic Name Dose Route Start Last Admin Trade Name Freq PRN Reason Stop Dose Admin Acetaminophen 1,000 mg 04/03/24 21:34 04/03/24 21:46 Acetaminophen 1,000mg/100ml Vial IV 04/03/24 21:35 1,000 mg ONCE ONE Administration Lactated Ringer's 1,000 mls @ 999 mls/hr 04/03/24 21:34 04/03/24 21:47 Lactated Ringer's 1000 Ml Bag IV 04/03/24 22:34 999 mls/hr .Q1H1M ONE Administration Ketorolac Tromethamine 15 mg 04/03/24 21:34 04/03/24 21:46 Ketorolac 30mg/Ml Vial IV 04/03/24 21:35 15 mg ONCE ONE Administration Prochlorperazine Edisylate 10 mg 04/03/24 21:34 04/03/24 21:47 Prochlorperazine 10mg/2ml Vial IV 04/03/24 21:35 10 mg ONCE ONE Administration ORDERS Category Date Time Status POCUS Point of Care (ER Only) Stat Exams 04/03/24 21:34 Taken Complete Blood Count Auto Diff Stat Lab 04/03/24 21:42 Completed Comprehensive Metabolic Panel Stat Lab 04/03/24 21:42 Completed D-Dimer Stat Lab 04/03/24 21:42 Completed Magnesium Stat Lab 04/03/24 21:42 Completed Troponin I Q3H Lab 04/04/24 00:45 Ordered Troponin I Q3H Lab 04/04/24 03:45 Ordered Troponin I Stat Lab 04/03/24 21:42 Completed Medical Decision Narrative: Is a 38-year-old female history of breast cancer status post double mastectomy, complete lymph node resection left side, multiple lymph nodes removed on the right, DVT of her right jugular vein presenting with right upper extremity pain. Patient states it has been painful and swelling for the last couple of days. Has a host of other symptoms including intermittent chest pains over the last couple of days, generalized weakness, anxiety, shortness of breath, decreased p.o. intake, etc. Patient states that these are all similar symptoms that she had when she had her right jugular venous thrombosis previously. Has not been on her Eliquis in about 2 months because she finished the course. Called her oncologist today, they recommend she come to the emergency department for further evaluation given her symptoms. On arrival, patient hemodynamically stable and very well-appearing. Her right upper extremity is not appreciably larger than her left. No outward signs of redness, no deformity or other abnormality grossly. Pulses are equal and symmetric, patient is neurologically intact and has good capillary refill, bounding pulses in the right upper extremity. Differential includes DVT, dissection, ACS, pneumothorax, complex regional pain syndrome, among others. Independent rotation of workup demonstrates normal CBC and chemistry. Negative D-dimer, negative troponin. Bedside [id number] ultrasound with no evidence of DVT of the right upper extremity or in the jugular vein. Good lung sliding on the right. I feel this is incredibly unlikely to be ACS given duration of symptoms and negative troponin. Also feel this is unlikely to be dissection given negative D-dimer, normal pulses, symmetric neurologic findings, and bilateral symmetric pulses. Also patient sleeping comfortably on reevaluation normotensive and nontachycardic. Because patient at baseline without signs or symptoms of clinical decompensation, deemed appropriate for discharge. Results were relayed to patient who voiced understanding and were agreeable to outpatient management and follow up. I discussed my clinical impression with patient and answered all questions. At this time, the evidence for any other entities in the differential is insufficient to warrant any further testing or ED observation. This was explained as well. Advisory was given that persistent or worsening symptoms require further evaluation. I confirmed the understanding of this discussion. Procedures <Neeraj Quan MD - Last Filed: 04/03/24 23:17> Limited Ultrasound Indication:: Limited DVT ultrasound Indication: Limited compression ultrasonography of the right extremity was performed to evaluate for non-compressibility of the deep veins in the patient. The ultrasound was performed with the following indications, as noted in the H&P: Right upper extremity pain Identified structures: Right ulnar vein, radial vein, cephalic vein, basilic vein, axillary vein. Findings: Upper extremity: Right UV good compressibility Right RV: Good compressibility Right Cephalic vein: Good Right Basilic vein: Good compressibility Right Axillary vein: Good compressibility Impression: Normal right upper extremity DVT ultrasound Images were saved to permanent archive The study was technically adequate CPT: [id number] [id number] [id number] (complete bilateral study) This study was performed by me, and I personally interpreted all images/videos. Based on my clinical judgement, these images were adequate and did not necessitate further imaging. Critical Care <LUCI Silva - Last Filed: 04/03/24 23:05> Critical Care Time Critical Care Time: No
[2024-04-03 21:37] VITALS: BP 151/76; PULSE 91; RESP 16; O2SAT 94
[2024-04-03] MEDS: KETOROLAC 30MG/ML VIAL 15 MG IV (21:46)
[2024-04-03] MEDS: ACETAMINOPHEN 1,000MG/100ML VIAL 1000 MG IV (21:46)
[2024-04-03] MEDS: PROCHLORPERAZINE 10MG/2ML VIAL 10 MG IV (21:47)
[2024-04-03] MEDS: LACTATED RINGERS 1000ML 1,000 ML 999 ML IV (21:47)
[2024-04-03 21:50] LABS: Basophils # 0.1 K/mm3 (0-0.2); Basophils % 0.7 % (0.1-2.0); Eosinophils # 0.3 K/mm3 (0.0-0.4); Eosinophils % 2.9 % (0.1-12.0); Hematocrit 40.7 % (37.0-47.0); Hemoglobin 13.8 g/dL (12.2-16.2); Lymphocytes # 2.9 K/mm3 (0.7-4.5); Lymphocytes % 30.9 % (10-50); Mean Corpuscular HGB Conc 33.9 g/dL (31.8-35.4); Mean Corpuscular Hemoglobin 29.8 pg (27.0-31.2); Mean Corpuscular Volume 87.9 fl (81-99); Mean Platelet Volume 7.8 fl (7.4-10.4); Monocytes # 0.5 K/mm3 (0.1-1.0); Monocytes % 5.6 % (1.7-9.3); Neutrophils # 5.7 K/mm3 (1.8-7.8); Neutrophils % 59.9 % (37.0-80.0); Platelet Count 300 K/mm3 (142-424); Red Blood Count 4.62 M/mm3 (4.20-5.40); Red Cell Distribution Width 15.4 % (11.5-17.5); White Blood Count 9.5 K/mm3 (4.8-10.8)
--- NOTE | 2024-04-03 21:53 | ECG_ITS ---
APPROVED REPORT Exam: Resting ECG HR:91 bpm ECG Measurements Heart Rate 91 AXES PA 138 P 59 QRSd 93 QRS 71 QT 359 T 49 QTc 408 Conclusion SINUS RHYTHM NORMAL ECG Electronically signed by : CHIKIS STOCK, 04/03/2024 22:03:25
[2024-04-03 21:59] LABS: Alanine Aminotransferase 20 U/L (12-78); Albumin Level 4.2 g/dl (3.5-5.0); Albumin/Globulin Ratio 1.4 (1.1-1.8); Alkaline Phosphatase 83 U/L (38-126); Anion Gap 9.4 mEq/L (5-15); Aspartate Amino Transferase 27 U/L (14-36); Bilirubin,Total 0.6 mg/dl (0.2-1.3); Blood Urea Nitrogen 9 mg/dl (7-17); Calcium 9.3 mg/dl (8.4-10.2); Carbon Dioxide 28 mmol/L (22.0-30.0); Chloride 106 mmol/L (98-107); Creatinine Clearance Estimated 179 mL/min (50-200); Estimated Glomerular Filt Rate 137 ml/min (>60); GFR (African American) 165 ML/MIN (>60); Globulin 3.1 g/dL (1.3-3.2); Glucose 79 mg/dl (74-100); Magnesium 1.7 mg/dl (1.6-2.3); Potassium 3.4 mmoL/L (3.5-5.1); Sodium 140 mmol/L (136-145); Total Protein,Serum 7.3 g/dl (6.3-8.2)
[2024-04-03 22:03] LABS: D-Dimer 0.33 ug/mL (0.0-0.5)
[2024-04-03 22:15] LABS: Troponin I < 0.01 ng/ml (0.00-0.034)
[2024-04-03 23:16] VITALS: BP 133/70; PULSE 84; RESP 16; TEMP 36.8; O2SAT 97
== END 2024-04-03 23:22 | disposition home or self-care (01) ==
PROVIDERS: Emergency Provider Emergency Medicine; PCP Nurse Practitioner Family
DX: M79.601 Pain in right arm (principal); R07.9 Chest pain, unspecified; R06.02 Shortness of breath; R53.1 Weakness; Z85.3 Personal history of malignant neoplasm of breast; Z90.13 Acquired absence of bilateral breasts and nipples; Z86.718 Personal history of other venous thrombosis and embolism
CPT/HCPCS: 80053; 83735; 84484; 85025; 85378; 93005; 96361; 96374; 96375; 99285; J0131; J1885; J7120

== ENCOUNTER 2024-11-18 15:49 | Emergency (ER) | payer MEDICAID, SELFPAY ==
[2024-11-18] VITALS (10 sets, daily range): BP systolic 00–155; BP diastolic 00–110; PULSE 0–100; RESP 12–20; TEMP -17.7–37.1; O2SAT 0–100; BMI 26.6
--- NOTE | 2024-11-18 15:52 | CT_ITS ---
PROCEDURE INFORMATION: Exam: CTA Chest With Contrast Exam date and time: 11/18/2024 5:01 PM Age: 39 years old Clinical indication: Other: AMS; Additional info: Fever unknown origin, AMS, generally ill TECHNIQUE: Imaging protocol: Computed tomographic angiography of the chest with contrast. Exam focused on the arteries. 3D rendering (Not supervised by radiologist): MIP and/or 3D reconstructed images were created by the technologist. Radiation optimization: All CT scans at this facility use at least one of these dose optimization techniques: automated exposure control; mA and/or kV adjustment per patient size (includes targeted exams where dose is matched to clinical indication); or iterative reconstruction. Contrast material: ISOVUE 370; Contrast volume: 80 ml; Contrast route: INTRAVENOUS (IV); COMPARISON: CT ANGIO NECK 11/18/2024 4:57 PM FINDINGS: Pulmonary arteries: No CT evidence for pulmonary embolism. Great vessels off aortic arch: The mediastinal structures including the esophagus, trachea, great vessels, and heart show no evidence of injury or acute pathologic processes. Aorta: Unremarkable. No aortic aneurysm. No aortic dissection. Lungs: No acute infiltrates.. Pleural spaces: Unremarkable. No pneumothorax. No pleural effusion. Heart: See Great vessels off aortic arch finding. Lymph nodes: Unremarkable. No enlarged lymph nodes. Bones/joints: Unremarkable. No acute fracture. Soft tissues: Unremarkable. IMPRESSION: 1. No CT evidence for pulmonary embolism. 2. No acute infiltrates..
--- NOTE | 2024-11-18 15:52 | CT_ITS ---
PROCEDURE INFORMATION: Exam: CT Head Without Contrast Exam date and time: 11/18/2024 4:44 PM Age: 39 years old Clinical indication: Altered mental status/memory loss; Additional info: Fever unknown origin, AMS, generally ill TECHNIQUE: Imaging protocol: Computed tomography of the head without contrast. Radiation optimization: All CT scans at this facility use at least one of these dose optimization techniques: automated exposure control; mA and/or kV adjustment per patient size (includes targeted exams where dose is matched to clinical indication); or iterative reconstruction. COMPARISON: CT HEAD/BRAIN W CON 02/05/2023 7:20 PM FINDINGS: Brain: Normal. No hemorrhage. Unremarkable white matter. No mass effect. Cerebral ventricles: No ventriculomegaly. Paranasal sinuses: Visualized sinuses are unremarkable. No fluid levels. Mastoid air cells: Visualized mastoid air cells are well aerated. Bones: Unremarkable. No acute fracture. Soft tissues: Unremarkable. IMPRESSION: Stable noncontrast CT brain. No acute intracranial abnormality.
--- NOTE | 2024-11-18 15:52 | CT_ITS ---
PROCEDURE INFORMATION: Exam: CT Abdomen And Pelvis With Contrast Exam date and time: 11/18/2024 5:01 PM Age: 39 years old Clinical indication: Other: AMS; Additional info: Fever unknown origin, AMS, generally ill TECHNIQUE: Imaging protocol: Computed tomography of the abdomen and pelvis with contrast. 3D rendering (Not supervised by radiologist): MIP and/or 3D reconstructed images were created by the technologist. Radiation optimization: All CT scans at this facility use at least one of these dose optimization techniques: automated exposure control; mA and/or kV adjustment per patient size (includes targeted exams where dose is matched to clinical indication); or iterative reconstruction. Contrast material: ISOVUE; Contrast volume: 80 ml; Contrast route: IV; COMPARISON: ABDPELWO CT abdomen pelvis wo con 04/22/2018 8:35 PM FINDINGS: Lungs: The visualized lung bases demonstrate no focal infiltrates. Liver: Mild diffuse hepatic steatosis is identified. Gallbladder and biliary ducts: Normal. No calcified stones. No ductal dilation. Pancreas: The pancreas is normal. Spleen: The spleen is normal. Adrenal glands: The adrenal glands appear within normal limits. Kidneys and ureters: The kidneys are normal. Stomach and bowel: Unremarkable. No obstruction. No mucosal thickening. Appendix: No evidence of appendicitis. Intraperitoneal space: No free air. No evidence for focal fluid collection or ascites. No evidence for omental thickening. Vasculature: Unremarkable. No abdominal aortic aneurysm. Lymph nodes: Unremarkable. No pathologically enlarged lymph nodes are identified. Urinary bladder: The bladder appears within normal limits. No wall thickening. Reproductive: The uterus and adnexal structures appear normal. Bones/joints: Unremarkable. No acute fracture. Soft tissues: Unremarkable. IMPRESSION: No acute abnormalities are identified.
--- NOTE | 2024-11-18 15:52 | ECG_ITS ---
APPROVED REPORT Exam: Resting ECG HR:69 bpm ECG Measurements Heart Rate 69 AXES CO 130 P 52 QRSd 91 QRS 69 QT 418 T 59 QTc 437 Conclusion SINUS RHYTHM WITH SINUS ARRHYTHMIA NORMAL ECG Electronically signed by : JASWANT HERRON, 11/18/2024 22:42:57
--- NOTE | 2024-11-18 15:52 | CT_ITS ---
PROCEDURE INFORMATION: Exam: CT Cervical Spine Without Contrast Exam date and time: 11/18/2024 4:52 PM Age: 39 years old Clinical indication: Other: AMS; Additional info: Fever unknown origin, AMS, generally ill TECHNIQUE: Imaging protocol: Computed tomography of the cervical spine without contrast. Radiation optimization: All CT scans at this facility use at least one of these dose optimization techniques: automated exposure control; mA and/or kV adjustment per patient size (includes targeted exams where dose is matched to clinical indication); or iterative reconstruction. COMPARISON: CT HEAD/BRAIN WO CON 11/18/2024 4:44 PM FINDINGS: Bones: No acute fracture. Normal alignment. No significant disc bulge or herniation. No severe spinal canal stenosis. No significant neural foraminal narrowing. Lungs: Lung apices are normal. Soft tissues: Unremarkable. IMPRESSION: No acute findings. If persistent clinical concern for cervical spine infection consider MRI scan of the C-spine with and without contrast.
--- NOTE | 2024-11-18 15:55 | PC.NURSE ---
FSBS was 102
--- NOTE | 2024-11-18 15:57 | ED_ITS ---
Discharge Plan Disposition Patient Disposition: Left Against Medical Advice Prescriptions Prescriptions: No Action fluoxetine 10 mg capsule 10 mg PO DAILY Patient Comments: TAKE 1 CAPSULE BY MOUTH EVERY DAY trazodone 150 mg tablet 150 mg PO DAILY propranolol 10 mg tablet 10 mg PO DAILY venlafaxine 37.5 mg capsule,extended release 24hr 37.5 mg PO DAILY omeprazole 40 mg capsule,delayed release(DR/EC) 40 mg PO DAILY dexamethasone 4 mg tablet 4 mg PO DAILY loratadine 10 mg tablet 10 mg PO DAILY duloxetine 30 mg capsule,delayed release(DR/EC) 30 mg PO DAILY Referrals Follow up/Referrals: Nova Ferrer APRN [Primary Care Provider] - See instructions Activity Restrictions/Add. Instructions Additional Instructions/Restrictions: Please stop taking the Phenergan at home that you are prescribed, as this can be precipitating adverse effects from your other medications. Follow-up closely with your doctor over the next 48 hours. You are choosing to leave AGAINST MEDICAL ADVICE. As we discussed, this can lead to worsening of your condition and even . If you wish to change your mind and be admitted for monitoring as we recommended, please return right away. Clinical Impressions Clinical Impression: Adverse drug reaction, Serotonin syndrome, Altered mental status Print Language Print Language: Macedonian Discharge ED Provider: Jennifer Armando General Adult HPI General Chief complaint: Weakness Stated complaint: fall in parking lot, out of it Time Seen by Provider: 11/18/24 15:52 History of Present Illness HPI narrative: This patient is a 39-year-old female with a history of breast cancer on tamoxifen, depression, anxiety presenting to the emergency department for evaluation with concern for altered mental status. According to the patient's fianc?, she has been sick for about a week with flulike symptoms and what they thought was a cold. Since yesterday, she has been in bed, hallucinating, not acting like herself. Her is that she has had minimal cough and congestion, she has complained of headache. He denies noting any other concerns. Patient does not contribute to history as she does not answer any sort of questions. She is not cooperative with history examination, only yelling out for her mom. Related Data Home Medications ?Medication ?Instructions ?Recorded ?Confirmed fluoxetine 10 mg capsule 10 mg PO DAILY 05/24/23 09/06/23 propranolol 10 mg tablet 10 mg PO DAILY 05/24/23 09/06/23 trazodone 150 mg tablet 150 mg PO DAILY 05/24/23 09/06/23 dexamethasone 4 mg tablet 4 mg PO DAILY 09/06/23 09/06/23 duloxetine 30 mg capsule,delayed 30 mg PO DAILY 09/06/23 09/06/23 release loratadine 10 mg tablet 10 mg PO DAILY 09/06/23 09/06/23 omeprazole 40 mg capsule,delayed 40 mg PO DAILY 09/06/23 09/06/23 release venlafaxine 37.5 mg 37.5 mg PO DAILY 09/06/23 09/06/23 capsule,extended release 24 hr Allergies Allergy/AdvReac Type Severity Reaction Status Date / Time diphenhydramine (From Allergy Unknown Verified 09/06/23 12:28 BENADRYL) [facility] Disclaimer: The information contained in this section may have been updated after the patient was seen, as this information can be updated by other users. 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 History of breast biopsy Social History Smoking Status: Former smoker alcohol intake: never substance use type: marijuana current occupational status: employed Travel in the last 8 weeks: None Have you lived/traveled outside [place] in past 30 days?: No Contact w/someone who lives/traveled outside US past 30 days?: No Exposure to someone with infectious disease in past 14 days?: No Do you have a fever (greater than 100.4 F or 38 C)?: No Have you tested positive for COVID-19: No Exposed to someone with COVID-19 in past 14 days?: No Do you have a sore throat?: No Do you have a cough?: No Do you have any weakness?: Yes Do you have any diarrhea?: No Are you experiencing any unusual bleeding?: No Do you have any muscle aches/pain?: No Do you have any abdominal pain?: No Are you experiencing loss of taste or smell?: No Other Medical History Have you received the Flu Vaccine for this season: No Have you received the Pneumonia Vaccine: No ROS Obtained: Yes unobtainable due to mental status Physical Exam General General appearance: alert Comment: Alert, not cooperative. Not answering questions, calling out for her mom. Head Head exam: atraumatic and normocephalic Eye Eye exam: Present normal appearance, PERRL and EOMI ENT ENT exam: Present normal exam, normal oropharynx, mucous membranes dry and normal external ear exam Neck Neck exam: Present normal inspection, full ROM and trachea midline; Absent tenderness or meningismus Chest Chest inspection: Present normal inspection and symmetric chest wall rise; Absent tenderness Respiratory Respiratory exam: Present normal lung sounds bilaterally; Absent respiratory distress, wheezes, stridor or accessory muscle use Cardiovascular Cardiovascular exam: Present regular rate and normal rhythm Abdominal Exam Abdominal exam: Present soft; Absent distention, tenderness, guarding or rebound Extremities Exam Extremities exam: Present normal inspection, full ROM and normal capillary refill; Absent tenderness or edema Back Exam Back exam: Present normal inspection and full ROM; Absent tenderness Neurological Exam Neurological exam: Present alert Expanded Neurological Exam Coma scale eye opening: Spontaneous Coma scale motor response: Localizes to pain Coma scale verbal response: Inappropriate Coma scale total: 12 Psychiatric Psychiatric exam: Present agitated and anxious Skin Skin exam: Present warm and dry Medical Decision Making Medical Records Medical records reviewed: Yes I reviewed the patient's medical records. Screening: Per USPSTF and CDC recommendations, given the prevalence of disease in our region, it is our hospital?s policy to screen for HIV and viral Hepatitis for all patients aged 18 and over and those with ongoing risk factors. [place] Inquiry Pt receiving controlled substance: No Vital Signs: 11/18/24 15:49 11/18/24 15:55 11/18/24 16:00 Temperature 98.7 F Temperature Source Oral Pulse Rate 74 71 Pulse Rate [Left Radial] 79 Respiratory Rate 15 16 14 Blood Pressure 155/95 H 146/94 H Blood Pressure [Right Arm] 155/95 H Blood Pressure Mean [Right Arm] 115 Blood Pressure Source Blood Pressure Position 02 Sat by Pulse Oximetry 98 99 98 Oxygen Delivery Method Room Air Room Air Room Air 11/18/24 16:30 11/18/24 17:02 11/18/24 17:31 Temperature Temperature Source Pulse Rate 69 100 H 49 L Pulse Rate [Left Radial] Respiratory Rate 14 18 15 Blood Pressure 134/88 152/107 H 136/109 H Blood Pressure [Right Arm] Blood Pressure Mean [Right Arm] Blood Pressure Source Automatic Cuff Blood Pressure Position Sitting 02 Sat by Pulse Oximetry 97 100 100 Oxygen Delivery Method Room Air Room Air Room Air 11/18/24 18:00 11/18/24 18:30 11/18/24 19:55 Temperature Temperature Source Pulse Rate 60 79 59 L Pulse Rate [Left Radial] Respiratory Rate 12 14 Blood Pressure 149/99 H 139/110 H 149/85 H Blood Pressure [Right Arm] Blood Pressure Mean [Right Arm] Blood Pressure Source Blood Pressure Position 02 Sat by Pulse Oximetry 99 97 100 Oxygen Delivery Method Room Air Room Air Room Air 11/18/24 21:07 Temperature 0 F L Temperature Source Pulse Rate 0 L Pulse Rate [Left Radial] Respiratory Rate 20 Blood Pressure 00/00 L Blood Pressure [Right Arm] Blood Pressure Mean [Right Arm] Blood Pressure Source Blood Pressure Position 02 Sat by Pulse Oximetry Oxygen Delivery Method Lab Data Lab results reviewed: Yes I reviewed the patient's lab results. Lab Results 11/18/24 15:35: HCV Ab LASHAE w/Rflx PCR Qn Reactive, HIV Ag/Ab Combo Qual Negative 11/18/24 15:55: WBC 12.0 H, RBC 4.63, Hgb 14.8, Hct 41.7, MCV 90.1, MCH 32.0 H, MCHC 35.5 H, RDW 11.9, Plt Count 335, MPV 9.5, Neut % (Auto) 68.6, Lymph % (Auto) 25.0, [place] % (Auto) 5.1, Eos % (Auto) 0.6, Baso % (Auto) 0.4, Neut # (Auto) 8.2 H, Lymph # (Auto) 3.0, [place] # (Auto) 0.6, Eos # (Auto) 0.1, Baso # (Auto) 0.1, ESR 16, PT 10.6, INR 0.96, APTT 23.6, Sodium 139, Potassium 3.7, Chloride 105, Carbon Dioxide 21 L, Anion Gap 16.7 H, BUN 16, Creatinine 0.50 L, Estimated GFR 136, Est GFR ( Amer) 165, Glucose 105 H, Calcium 9.3, Total Bilirubin 0.7, AST 29, ALT 23, Alkaline Phosphatase 114, Troponin I < 0.01, C- Reactive Protein 4.8 H, Total Protein 8.0, Albumin 4.9, Globulin 3.1, Albumin/Globulin Ratio 1.6, Lipase 122, Procalcitonin < 0.030, TSH 2.09, T hyroxine (T4) 12.9 H, Salicylates < 1.0 L, Acetaminophen < 10 L, Plasma/Serum Alcohol < 10 11/18/24 16:04: VBG pH 7.49 H, VBG pCO2 27.6 L, VBG pO2 51.7 H, VBG HCO3 20.6 L, VBG Total CO2 21.5 L, VBG O2 Saturation 89.3 H, VBG Base Excess -2.7 L, VBG Lactic Acid 1.9 11/18/24 16:10: SARS-CoV-2 (PCR) Not detected, Influenza A Untype (PCR) Not detected, Influenza Type B (PCR) Not detected 11/18/24 16:52: Troponin I < 0.01 11/18/24 17:20: Urine Color Yellow, Urine Appearance Clear, Urine pH 6.5, Ur Specific [place] 1.020, Urine Protein Negative, Urine Glucose (UA) Negative, Urine Ketones 3+, Urine Blood Negative, Urine Nitrate Negative, Urine Bilirubin Negative, Urine Urobilinogen 0.2, Ur Leukocyte Esterase Negative, Urine RBC None, Urine WBC None, Ur Squamous Epith Cells Occasional, Urine Bacteria Trace, Urine Opiates Screen Negative, Urine Methadone Screen Negative, Ur Barbituates Screen Negative, Ur Phencyclidine Scrn Negative, Ur Amphetamines Screen Negative, U Benzodiazepines Scrn Negative, Urine Cocaine Screen Negative, U Marijuana (THC) Screen Positive H 11/18/24 15:55 11/18/24 15:55 Orders (Tests/Meds): ED MEDICATIONS Discontinued Medications Generic Name Dose Route Start Last Admin Trade Name Chase PRN Reason Stop Dose Admin Lactated Ringer's 1,850 mls @ 925 mls/hr 11/18/24 16:21 11/18/24 17:15 Lactated Ringer's 1000 Ml Bag 30 ml/kg infuse over 2 hr (1850 ml) 11/18/24 18:20 925 mls/hr IV Administration .Q2H ONE Iopamidol 160 ml 11/18/24 16:56 11/18/24 16:57 Iopamidol-370 (76%);100ml Bottle IV 11/18/24 16:57 160 ml ONCE ONE Administration Lorazepam 2 mg 11/18/24 16:45 11/18/24 16:50 Lorazepam 2mg/Ml Vial IV 11/18/24 16:46 2 mg ONCE ONE Administration Midazolam HCl 5 mg 11/18/24 18:54 11/18/24 18:56 Midazolam 2mg/2ml Vial IM 11/18/24 18:55 5 mg ONCE ONE Administration Sodium Chloride 10 ml 11/18/24 16:45 Sodium Chloride 0.9% 10ml Vial IV 12/18/24 16:44 NEEDED PRN to Dilute Lorazepam inj Sodium Chloride 10 ml 11/18/24 16:56 11/18/24 16:57 Sodium Chloride 0.9% 10ml Syr (Rad Only) IV 11/18/24 16:57 10 ml ONCE ONE Administration Sodium Chloride 100 ml 11/18/24 16:56 11/18/24 16:57 0.9 % Sodium Chloride 50 Ml Vial IV 11/18/24 16:57 100 ml ONCE ONE Administration ORDERS Category Date Time Status CT abdomen pelvis w con Stat Cat Scan 11/18/24 15:[address] angio chest PE protocol Stat Cat Scan 11/18/24 15:[address] angio head Stat Cat Scan 11/18/24 16:[address] angio neck Stat Cat Scan 11/18/24 16:[address] cervical spine wo con Stat Cat Scan 11/18/24 15:[address] head/brain wo con Stat Cat Scan 11/18/24 15:52 Completed Acetaminophen Stat Lab 11/18/24 15:55 Completed CRP [C-Reactive Protein] Stat Lab 11/18/24 15:55 Completed Complete Blood Count Auto Diff Stat Lab 11/18/24 15:55 Completed Comprehensive Metabolic Panel Stat Lab 11/18/24 15:55 Completed ESR [Erythrocyte Sedimentation Rate] Stat Lab 11/18/24 15:55 Completed Ethyl Alcohol Stat Lab 11/18/24 15:55 Completed HCV RNA PCR, Quant Stat Lab 11/18/24 15:35 Received HIV Combo Stat Lab 11/18/24 15:35 Completed Hepatitis C Ab Qual. W/ RFX Stat Lab 11/18/24 15:35 Completed Lipase Stat Lab 11/18/24 15:55 Completed PT INR [Prothrombin Time INR] Stat Lab 11/18/24 15:55 Completed PTT [Activated Partial Thrombo Time] Stat Lab 11/18/24 15:55 Completed Procalcitonin Stat Lab 11/18/24 15:55 Completed Rapid PCR Covid and Flu A/B Stat Lab 11/18/24 16:10 Completed Salicylate Stat Lab 11/18/24 15:55 Completed T4 (Thyroxine) Stat Lab 11/18/24 15:55 Completed TSH [Thyroid Stimulating Hormone] Stat Lab 11/18/24 15:55 Completed Trop I [Troponin I] Stat Lab 11/18/24 15:55 Completed Troponin I Q3H Lab 11/18/24 16:52 Completed UA [Urinalysis and Microscopic] Stat Lab 11/18/24 17:20 Completed UDS [Drug Screen,Urine] Stat Lab 11/18/24 17:20 Completed Blood Culture Stat Micro 11/18/24 16:13 Received VBG [Venous Blood Gas] Stat RT 11/18/24 16:04 Completed ECG Data Tracing #1: I reviewed this ECG and interpreted as documented below: Normal sinus rhythm with a ventricular rate of 69 bpm. Sinus arrhythmia. No acute ST changes concerning for ischemia. Normal axis and intervals. ECG initial impression date: 11/18/24 ECG initial impression time: 15:54 Medical Decision Narrative: In summary, this patient is a 39-year-old female presenting to the Emergency Department for evaluation of altered mental status. Differential diagnoses considered include but are not limited to sepsis, urinary tract infection, intracranial hemorrhage, intracranial mass, hyperthyroid, medication adverse reaction such as serotonin syndrome, meningitis/encephalitis, psychiatric disturbance. Ruling out the most morbid conditions drove assessment. It should be noted patient's history includes breast cancer and depression/anxiety which may or may not be at goal therapy. This complicates all aspects of care by increasing patient's risk for morbidity. I reviewed patient's past medical records and noted previous evaluations with surgery for fibrocystic breast disease and breast cancer. I requested the patient's medication list from the pharmacy, as she is not able to provide me with history of medications and also her is not sure. Per pharmacy list, she takes: promethazine, veozah, tamoxifen, trazodone, loratidine, omeprazole, xarelto, venlafaxine, gabapentin, oxycodone-APAP On exam, the patient is alert but GCS of 12. She is agitated, acts like she is afraid of us and seeing things that are not there. She is crying out for her parents. She does not have focal neurologic deficits noted but overall is behaving very abnormally. She has hyperreflexia. Workup included very broad lab evaluation to evaluate for infectious, metabolic, cardiac etiology as well as CT scans from head to pelvis with angiograms of the head, neck, chest, abdomen, and pelvis. I also did a CT cervical spine without IV contrast given that the patient had a possible fall versus syncopal episode in the parking lot.. I independently interpreted CT scans prior to the radiologist read and noted no intracranial hemorrhage, no PE, no obvious intra-abdominal infection. Please see their read for final interpretation. Labs were obtained that demonstrated reassuring CBC with only very mild leukocytosis, VBG demonstrates a respiratory alkalosis, chemistry that demonstrates a very mildly elevated anion gap and mildly low CO2 but otherwise no acutely concerning abnormalities, negative troponin. CRP is only at the upper limits of normal indicating significant infection/inflammation are unlikely. ESR normal. UDS is positive for marijuana, urinalysis otherwise negative for infection. For the purpose of CT scans, patient was given IV Ativan, but because she was very agitated, trying to get up and run away and fighting everyone. She was essentially nonverbal at that time and not redirectable. Family was updated to this, including next of kin which is her parents. Patient immediately improved with administration of Ativan. She became coherent and conversational, though she still could not answer orientation questions appropriately. She was also given IV fluids for resuscitation, which continued to improve her symptoms. I considered doing a lumbar puncture, however patient takes Xarelto so would be very high risk. It is also unlikely that she has meningitis with normal inflammatory markers, no fever, no meningismus, and rapidly improving symptoms after administration of benzodiazepines. On further investigations, I realized that she takes multiple serotonergic medications and was just started on Phenergan for nausea and vomiting in the setting of an acute illness 11/15/2024. Given this, I feel she likely has serotonin syndrome in the setting of her altered mental status, hyperreflexia, agitation. I advised that I recommend admission to the hospital for further evaluation and management of altered mental status and possible serotonin syndrome. She tried to get up and run out of the emergency department stating she was ready to go home, but she is still very disoriented. Given this, decision was made to give her 5 mg of IM Versed, as she had ripped out her IV. This did help calm her down a lot, and then she was redirectable and able to lie down in the bed. She is in agreement to further observation in the emergency department, but she does not want to be admitted. Given that she does not answer orientation questions appropriately, I do not feel that she understands the risk of going home. Her next of kin (Dad) is at bedside and is in agreement with this plan. After several hours, the patient then stated that she was ready to go. She answers all orientation questions appropriately. I explained to her the risk of going home, including worsening of condition and even , but she chooses to leave AGAINST MEDICAL ADVICE regardless. She is alert and oriented x 4, GCS of 15, is able to repeat back to me all my concerns and demonstrates that she understands risk of going home. Her significant other and her next of kin (father) are at bedside and know she is leaving AMA. She left in stable condition with instructions to avoid Phenergan and other excess serotonergic's. I advise that she return to be admitted should she change her mind or for any worsening of condition. I also recommended very close outpatient follow-up. Critical Care Critical Care Time Critical Care Time: Yes Attestation: On 11/18/24, the high probability of a clinically significant, sudden or life threatening deterioration of the following system(s) required my full and direct attention, intervention and personal management. The time I documented below is in addition to time spent performing reported procedures but includes the following listed in this critical care notation. Total Time Total Critical Care Time: 75
--- NOTE | 2024-11-18 15:58 | PC.NURSE ---
medicine stop in [place] called to fax current med list.
--- NOTE | 2024-11-18 16:03 | PC.NURSE ---
respiratory aware of vbg order
[2024-11-18 16:04] LABS: Lactate Venous 1.9 mmol/L (0.4-2.0); VBG Base Excess -2.7 mmol/L (-2.4-2.3); VBG HCO3 20.6 mmol/L (23-30); VBG Oxygen Saturation 89.3 % (50-70); VBG PCO2 27.6 mmol/L (35-51); VBG PH 7.49 mmol/L (7.31-7.41); VBG PO2 51.7 mmol/L (28-40); VBG Total CO2 21.5 mmol/L (23-27)
--- NOTE | 2024-11-18 16:04 | CT_ITS ---
PROCEDURE INFORMATION: Exam: CTA Neck With Contrast Exam date and time: 11/18/2024 4:57 PM Age: 39 years old Clinical indication: Other: AMS; Additional info: AMS, unable to provide history TECHNIQUE: Imaging protocol: Computed tomographic angiography of the neck with contrast. Exam focused on the cervical segments of the vasculature. 3D rendering (Not supervised by radiologist): MIP and/or 3D reconstructed images were created by the technologist. Radiation optimization: All CT scans at this facility use at least one of these dose optimization techniques: automated exposure control; mA and/or kV adjustment per patient size (includes targeted exams where dose is matched to clinical indication); or iterative reconstruction. Contrast material: ISOVUE 370; Contrast volume: 80 ml; Contrast route: INTRAVENOUS (IV); COMPARISON: CT CERVICAL SPINE WO CON 11/18/2024 4:52 PM FINDINGS: Right common carotid artery: No stenosis. No dissection or occlusion. Right internal carotid artery: No stenosis of the extracranial segment. No dissection or occlusion. Right external carotid artery: No occlusion or stenosis of the origin. Left common carotid artery: No stenosis. No dissection or occlusion. Left internal carotid artery: No stenosis of the extracranial segment. No dissection or occlusion. Left external carotid artery: No occlusion or stenosis of the origin. Right vertebral artery: No stenosis. No dissection or occlusion. Left vertebral artery: No stenosis. No dissection or occlusion. Soft tissues: Normal. No significant soft tissue swelling. Bones/joints: No acute fracture. IMPRESSION: No stenosis or occlusion. REFERENCES: NASCET CRITERIA. The degree of stenosis in the cervical segment of the internal carotid artery is based on NASCET criteria. Normal is no stenosis. Mild is less than 50% stenosis. Moderate is 50-69% stenosis. Severe is 70% to 99% stenosis. Total occlusion is no detectable patent lumen.
--- NOTE | 2024-11-18 16:04 | CT_ITS ---
PROCEDURE INFORMATION: Exam: CTA Head With Contrast, Arteriography Exam date and time: 11/18/2024 4:57 PM Age: 39 years old Clinical indication: Other: AMS; Additional info: AMS, unable to provide history TECHNIQUE: Imaging protocol: Computed tomographic angiography of the head with contrast. Exam focused on the arteries. 3D rendering (Not supervised by radiologist): MIP and/or 3D reconstructed images were created by the technologist. Radiation optimization: All CT scans at this facility use at least one of these dose optimization techniques: automated exposure control; mA and/or kV adjustment per patient size (includes targeted exams where dose is matched to clinical indication); or iterative reconstruction. Contrast material: ISOVUE 370; Contrast volume: 80 ml; Contrast route: INTRAVENOUS (IV); COMPARISON: CT HEAD/BRAIN WO CON 11/18/2024 4:44 PM FINDINGS: ANTERIOR CIRCULATION: Right internal carotid artery: Intracranial segment is patent with no significant stenosis. No aneurysm. Right middle cerebral artery: No occlusion or significant stenosis. No aneurysm. Right anterior cerebral artery: No occlusion or significant stenosis. No aneurysm. Left internal carotid artery: Intracranial segment is patent with no significant stenosis. No aneurysm. Left middle cerebral artery: No occlusion or significant stenosis. No aneurysm. Left anterior cerebral artery: No occlusion or significant stenosis. No aneurysm. POSTERIOR CIRCULATION: Right vertebral artery: No occlusion or significant stenosis. No aneurysm. Left vertebral artery: No occlusion or significant stenosis. No aneurysm. Basilar artery: No occlusion or significant stenosis. No aneurysm. Right posterior cerebral artery: No occlusion or significant stenosis. No aneurysm. Left posterior cerebral artery: No occlusion or significant stenosis. No aneurysm. Brain: No definite mass, mass effect, or midline shift. Cerebral ventricles: No ventriculomegaly. Bones/joints: Unremarkable. No acute fracture. Soft tissues: Unremarkable. IMPRESSION: No large vessel stenosis or occlusion.
[2024-11-18 16:08] LABS: Basophils # 0.1 K/mm3 (0-0.2); Basophils % 0.4 % (0.1-2.0); Eosinophils # 0.1 K/mm3 (0.0-0.4); Eosinophils % 0.6 % (0.1-12.0); Hematocrit 41.7 % (37.0-47.0); Hemoglobin 14.8 g/dL (12.2-16.2); Mean Corpuscular HGB Conc 35.5 g/dL (31.8-35.4); Mean Corpuscular Volume 90.1 fl (81-99); Mean Platelet Volume 9.5 fl (7.4-10.4); Monocytes # 0.6 K/mm3 (0.1-1.0); Monocytes % 5.1 % (1.7-9.3); Neutrophils # 8.2 K/mm3 (1.8-7.8); Neutrophils % 68.6 % (37.0-80.0); Platelet Count 335 K/mm3 (142-424); Red Blood Count 4.63 M/mm3 (4.20-5.40); Red Cell Distribution Width 11.9 % (11.5-17.5)
[2024-11-18 16:12] LABS: Albumin Level 4.9 g/dl (3.5-5.0); Chloride 105 mmol/L (98-107); Potassium 3.7 mmoL/L (3.5-5.1); Sodium 139 mmol/L (136-145)
--- NOTE | 2024-11-18 16:13 | PC.NURSE ---
pt was given a warm blanket
[2024-11-18 16:14] LABS: Blood Urea Nitrogen 16 mg/dl (7-17); Estimated Glomerular Filt Rate 136 ml/min (>60); GFR (African American) 165 ML/MIN (>60)
[2024-11-18 16:15] LABS: Alanine Aminotransferase 23 U/L (12-78); Albumin/Globulin Ratio 1.6 (1.1-1.8); Alkaline Phosphatase 114 U/L (38-126); Anion Gap 16.7 mEq/L (5-15); Aspartate Amino Transferase 29 U/L (14-36); Bilirubin,Total 0.7 mg/dl (0.2-1.3); Carbon Dioxide 21 mmol/L (22.0-30.0); Globulin 3.1 g/dL (1.3-3.2); Lipase 122 U/L (23-300)
[2024-11-18 16:16] LABS: Coronavirus 19, PCR Not Detected (NotDetected); Influenza A, PCR Not Detected (NotDetected); Influenza B, PCR Not Detected (NotDetected)
[2024-11-18 16:16] LABS: Calcium 9.3 mg/dl (8.4-10.2); Glucose 105 mg/dl (74-100)
[2024-11-18 16:21] LABS: C-Reactive Protein 4.8 mg/L (0-4)
[2024-11-18 16:30] LABS: Activated Partial Thrombo Time 23.6 seconds (22.5-28.5); INR 0.96 (0.9-1.1); Prothrombin Time 10.6 seconds (9.2-12.1)
[2024-11-18 16:49] LABS: Troponin I < 0.01 ng/ml (0.00-0.034)
[2024-11-18 16:50] LABS: T4 (Thyroxine) 12.9 ug/dl (5.53-11.0)
[2024-11-18] MEDS: LORazepam 2MG/ML VIAL 2 MG IV (16:50)
--- NOTE | 2024-11-18 16:50 | PC.NURSE ---
called to ct scanner d/t pt answering questions and then trying to get up off the table. Dr. Armando to see patient. Medication given.
[2024-11-18 16:51] LABS: Ethyl Alcohol < 10 mg/dl (0-10)
[2024-11-18 16:53] LABS: Erythrocyte Sedimentation Rate 16 mm/hr (0-20)
[2024-11-18] MEDS: IOPAMIDOL-370 (76%);100ML BOTTLE 160 ML IV (16:57)
[2024-11-18] MEDS: 0.9 % SODIUM CHLORIDE 50 ML VIAL 100 ML IV (16:57)
[2024-11-18] MEDS: SODIUM CHLORIDE 0.9% 10ML SYR (RAD ONLY) 10 ML IV (16:57)
[2024-11-18 17:03] LABS: Thyroid Stimulating Hormone 2.09 uIU/mL (0.465-4.68)
[2024-11-18 17:10] LABS: Procalcitonin < 0.030 ng/mL (0.0-2.0)
[2024-11-18] MEDS: LACTATED RINGERS 1000ML 1,850 ML 925 ML IV (17:15)
--- NOTE | 2024-11-18 17:27 | PC.NURSE ---
geovaniwick placed on pt and warm blanket given no other needs at this time
[2024-11-18 17:31] LABS: HIV Combo NEGATIVE (Negative)
[2024-11-18 17:39] LABS: Hepatitis C Ab Qual. W/ RFX REACTIVE (Negative)
[2024-11-18 17:58] LABS: Microscopic, Urine URINE MICROSCOPIC (MICROSCOPIC)
[2024-11-18 18:00] LABS: Appearance,Urine CLEAR (Clear); Blood, Urine Negative (Negative); Color,Urine YELLOW (Yellow); Glucose,Urine (UA) Negative (Negative); Ketones,Urine 3+ (Negative); Leukocyte Esterase,Urine Negative (Negative); Nitrate,Urine Negative (Negative); PH,Urine 6.5 (5.0-8.5); Protein,Urine Negative (Negative); Urobilinogen,Urine 0.2 EU/dl (0.2)
[2024-11-18 18:18] LABS: Acetaminophen < 10 ug/ml (10-30); Salicylate < 1.0 mg/dL (2.0-20.0)
[2024-11-18 18:21] LABS: Bilirubin,Urine Negative (Negative)
[2024-11-18 18:23] LABS: Bacteria,Urine Trace /lpf; Squamous Epithelial Cell,Urine Occasional #/hpf (0-5)
[2024-11-18 18:32] LABS: Barbiturates Screen,Urine Negative ng/ml (<200)
[2024-11-18 18:33] LABS: Amphetamine/Metha Screen,Urine Negative ng/ml (<1000)
[2024-11-18 18:34] LABS: Benzodiazepines Screen,Urine Negative ng/ml (<200); Cannabinoid Screen,Urine Positive ng/ml (<50)
[2024-11-18 18:35] LABS: Cocaine Screen,Urine Negative ng/ml (<300)
[2024-11-18 18:36] LABS: Methadone Screen,Urine Negative ng/ml (<300); Opiate Screen,Urine Negative ng/ml (<300)
[2024-11-18 18:37] LABS: Phencyclidine Screen,Urine Negative ng/ml (<25)
[2024-11-18] MEDS: MIDAZOLAM 2MG/2ML VIAL 5 MG IM (18:56)
[2024-11-18 20:41] LABS: Troponin I < 0.01 ng/ml (0.00-0.034)
== END 2024-11-18 21:09 | disposition left against medical advice (07) ==
PROVIDERS: Emergency Provider Emergency Medicine; PCP Nurse Practitioner Family
DX: G90.81 Serotonin syndrome (principal); T50.905A Adverse effect of unspecified drugs, medicaments and biological substances, initial encounter; R41.82 Altered mental status, unspecified; R51.9 Headache, unspecified; R05.9 Cough, unspecified; R09.81 Nasal congestion; Z53.29 Procedure and treatment not carried out because of patient's decision for other reasons; W18.39XA Other fall on same level, initial encounter; Y93.89 Activity, other specified; Y92.89 Other specified places as the place of occurrence of the external cause
CPT/HCPCS: 70450; 70496; 70498; 71275; 72125; 74177; 80053; 80307; 80320; 80329; 81001; 82803; 83690; 84145; 84436; 84443; 84484; 85025; 85610; 85651; 85730; 86140; 86803; 87040; 87389; 87522; 87636; 93005; 96361; 96372; 96374; 99291; G0480; J2060; J2250; J7120; Q9967